=== PATIENT | male | born 1990 | race African-American/Black ===

== ENCOUNTER 2022-04-23 19:57 | Emergency (ER) | payer OTHER, SELFPAY ==
--- NOTE | ~2022-04-23 | XR_ITS ---
EXAMINATION: XR KNEE, LEFT CLINICAL INFORMATION: Fall. Knee pain. COMPARISON: None TECHNIQUE: Four views of the left knee. FINDINGS: There is a corticated osseous density inferior to the patella. Bone fragment measures about 7 x 5 mm. Corticated margins of this osseous fragment and the donor site at the inferior tip of the patella suggesting this is an old fracture.. Cannot entirely exclude an acute fracture. There is associated soft tissue edema around the patellar tendon No joint effusion. Femur, tibia and fibula are intact. XR/XR knee LT 3V IMPRESSION: 1. Soft tissue edema and thickening of the patellar tendon. No joint effusion. 2. Osseous density inferior pole the patella appears to be an old fracture but cannot exclude an acute avulsion fracture as there is soft tissue edema related to the patellar tendon. Correlate with point tenderness.
[2022-04-23 20:11] VITALS: BP 124/70; PULSE 68; RESP 16; O2SAT 95; BMI 24.9
[2022-04-23] MEDS: Acetaminophen 325 MG TABLET 975 MG PO (20:43)
--- NOTE | 2022-04-24 00:59 | ED.LOWEXIN ---
HPI - Extremity Injury (Lower) General Chief Complaint: Extremity Injury, Lower Stated Complaint: left knee pain Time Seen by Provider: 04/24/22 00:45 Source: patient Mode of arrival: wheelchair Limitations: no limitations History of Present Illness HPI Narrative: 32-year-old male who presents with left knee pain after an injury old playing basketball. Patient tells me he was jumping up for rebound when another player struck him in the left knee. Patient reports immediate pain which is especially worsened if he tries to bear weight on it. Patient also reports swelling. Patient denies any redness, warmth, fevers, chills, numbness or tingling. Related Data Previous Rx's Medication Instructions Recorded ibuprofen 600 mg tablet 600 mg PO TID PRN pain #30 tabs 04/24/22 oxycodone 5 mg tablet 5 mg PO Q6H PRN pain #5 tabs 04/24/22 oxycodone 5 mg tablet 5 mg PO Q6H PRN pain #5 tabs 04/24/22 Allergies Allergy/AdvReac Type Severity Reaction Status Date / Time No Known Allergies Allergy Verified 04/24/22 01:12 Review of Systems Review of Systems: Yes all other systems are reviewed and are negative Constitutional: Constitutional: Reports no additional constitutional complaints, Denies body ache(s), Denies chills, Denies fever(s), Denies headache(s) and Denies weakness Eyes: Eyes: Reports no additional eye complaints and Denies change in vision ENT: Reports system reviewed and no additional complaints, except as documented, Denies dizziness, Denies headache(s), Denies nasal congestion, Denies nasal discharge and Denies neck pain Cardiovascular: Cardiovascular: Reports no additional cardiovascular complaints, Denies chest pain, Denies leg edema and Denies dyspnea Respiratory: Respiratory: Reports no additional respiratory complaints, Denies cough and Denies dyspnea Gastrointestinal: Gastrointestinal: Reports no additional gastrointestinal complaints, Denies abdominal pain, Denies diarrhea, Denies nausea and Denies vomiting Genitourinary: Genitourinary: Denies urinary incontinence Musculoskeletal: Musculoskeletal: Reports no additional musculoskeletal complaints, Denies back pain, Reports arthralgias, Denies joint swelling, Denies neck pain, Denies numbness and Denies tingling Integumentary/Breasts: Skin/Breast: Reports system reviewed and no additional complaints, except as docu and Denies rash Neurologic: Reports system reviewed and no additional complaints, except as documented, Denies Abnormal speech present, Denies dizziness, Denies headache(s), Denies numbness, Denies tingling and Denies weakness PMFSH Past Medical History Attestation statement: The following information was validated with the patient. Source: old records reviewed and nursing notes reviewed Social History Social History Advance Directives: No Advance Directives Information Provided: Yes Physical Exam Vital Signs: Vital Signs: Last Vital Signs Pulse 68 04/23/22 20:11 Resp 16 04/23/22 20:11 BP 124/70 04/23/22 20:11 Pulse Ox 95 04/23/22 20:11 O2 Del Method 04/23/22 20:11 BMI result Body Mass Index 24.9 Const: General: cooperative, healthy appearing, comfortable and no acute distress Orientation/consciousness: patient oriented x3 Limitations: no limitations HEENT: Head: Yes normal to inspection Ears: hearing grossly normal bilaterally General nose exam: Normal external nose present Face and sinus: Yes normal facial exam Mouth: Normal oral and palatal mucosa present Throat: Yes posterior oropharynx normal Eyes: General: appearance normal, both eyes and all related structures Pupils: Equal, round and reactive pupils present Neck: Neck: Yes normal visual inspection Chest: Chest palpation & inspection: normal inspection of the chest Resp: Effort & Inspection: normal respiratory effort Auscultation: clear to auscultation bilaterally Cardio: Rate: regular rate Rhythm: regular rhythm Peripheral pulses: Peripheral pulses 2+ throughout GI: Inspection: Yes normal to inspection Palpation (GI): Soft to palpation and nontender Auscultation: normal bowel sounds Back/Spine/Pelvis: Thoracic/Lumbar Spine: thoracic and lumbar spine normal to inspection Skin: General skin exam: no rashes or lesions noted Neuro: General: patient oriented x3, no focal motor deficits and normal sensation to monofilament Cranial nerves: Yes Equal, round and reactive pupils present Cognition (Neuro): normal cognition Speech: No Abnormal speech present Gait exam (Neuro): Normal gait present Motor exam (neuro): 5/5 motor strength present throughout Extrem: Other: left leg held in extension. pt unable to flex knee or raise leg NV intact distally Mod tenderness/swelling noted over anterior knee General: Yes normal to inspection Course Consultations Consultation #1: [id number]- I did speak to Jessica BAXTER from Orthopedics. We discussed that patient likely has a patellar tendon rupture. She will see the patient at 09:00 this morning in the orthopedic office. She recommended a knee immobilizer and crutches. I discussed this with the patient. We reviewed rice. Review taking an NSAID, oxycodone only as needed. MDM - Extremity Injury (Lower) MDM Narrative Medical decision making narrative: 32-year-old male who is here with left knee pain and inability to flex the knee or lift the leg due to pain over the anterior aspect as well as swelling after an injury while playing basketball. Will obtain x-ray Medical Records Attestation: I reviewed the patient's medical records. Lab Data Attestation: I reviewed the patient's lab results. Imaging Data knee xray: Attestation: I personally reviewed and interpreted this imaging study as follows: Radiologist's impression: Launch?Image [place] [id number] XRay Report Signed Patient: Chino Valentino MR#: [id number] : 1990 Acct:[id number] Age/Sex: 32 / M ADM Date: 04/23/22 Loc: HO.ED Attending Dr: Ordering Physician: Roberto ED Physician Date of Service: 04/23/22 Procedure(s): XR knee LT 3V Accession Number(s): [id number] cc: Generic ED Physician~ EXAMINATION: XR KNEE, LEFT CLINICAL INFORMATION: Fall. Knee pain.? COMPARISON: None? TECHNIQUE: Four views of the left knee. FINDINGS: There is a corticated osseous density inferior to the patella. Bone fragment measures about 7 x 5 mm. Corticated margins of this osseous fragment and the donor site at the inferior tip of the patella suggesting this is an old fracture.. Cannot entirely exclude an acute fracture. There is associated soft tissue edema around the patellar tendon No joint effusion. Femur, tibia and fibula are intact. XR/XR knee LT 3V IMPRESSION: ? 1. Soft tissue edema and thickening of the patellar tendon. No joint effusion. 2. Osseous density inferior pole the patella appears to be an old fracture but cannot exclude an acute avulsion fracture as there is soft tissue edema related to the patellar tendon. Correlate with point tenderness. ? Procedures Procedure Narrative Procedure Narrative: Crutches, knee immobilizer Discharge Plan Discharge Clinical Impression: Patellar tendon avulsion Patient Disposition: Home, Self-Care Instructions: Patella Tendon Repair (DC), Knee Pain (ED), Knee Immobilizer (ED) Additional Instructions: You have an appointment this morning at 09:00 with orthopedics. please show up for this appointment use the knee immobilizer and do not bear weight ice and elevate Prescriptions: New oxycodone 5 mg tablet 5 mg PO Q6H PRN (Reason: pain) Qty: 5 0RF Rx Instructions: Partial Fill upon patient request. ibuprofen 600 mg tablet 600 mg PO TID PRN (Reason: pain) Qty: 30 0RF oxycodone 5 mg tablet 5 mg PO Q6H PRN (Reason: pain) Qty: 5 0RF Rx Instructions: Partial Fill upon patient request. Referrals: [facility] [place] [Provider Group] - 1 day (Go to appointment at 9AM on 04/24) Stand Alone Forms: Work/School Release
--- NOTE | 2022-04-24 01:54 | PC.NURSE ---
I assumed nursing care of Chino at the time of his D/C. We placed a knee immobilizer to LLE. We provided crutches. Pt verbalized an understanding for the proper uses and indications for crutches and knee immobilizer. he also demonstrated the ability to use the crutches safgely and ambulate out of the department independently and with steady gait.
== END 2022-04-24 01:54 | disposition home or self-care (01) ==
PROVIDERS: Emergency Provider Emergency Medicine
DX: S86.819A Strain of other muscle(s) and tendon(s) at lower leg level, unspecified leg, initial encounter (principal); W50.0XXA Accidental hit or strike by another person, initial encounter; Y93.67 Activity, basketball; Y92.310 Basketball court as the place of occurrence of the external cause; Y99.9 Unspecified external cause status
CPT/HCPCS: 73562; 99283